=== PATIENT | male | born 1995 | race Caucasian/White ===

== ENCOUNTER → 2018-10-09 | Emergency (ER) | payer OTHER ==
[~2018-10-09] VITALS: Ht 182.9 cm; Wt 93.0 kg
[~2018-10-09] MED LIST: ALLEGRA-D 24 H1 EACH PO; LEVAQUIN750 MG PO; PROVENTIL HFA6.7 GM IH; SINGULAIR 10MG10 MG PO
== END | disposition home or self-care (01) ==
LOC: ER 07:30
DX: J06.9 Acute upper respiratory infection, unspecified (principal)

== ENCOUNTER 2018-10-24 10:22 | Emergency (ER) | payer OTHER ==
[~2018-10-24] VITALS: Ht 182.9 cm; Wt 90.7 kg
[2018-10-24] MEDS ORDERED: FLONASE16 GM NS (10:49)
== END 2018-10-24 13:13 | disposition home or self-care (01) ==
LOC: ER 10:22
DX: B34.9 Viral infection, unspecified (principal)

== ENCOUNTER 2022-04-01 18:17 | Emergency (ER) | payer OTHER ==
[~2022-04-01] VITALS: Ht 182.9 cm; Wt 98.9 kg
[~2022-04-01 18:17] MED LIST changes: +FLONASE16 GM NS
== END 2022-04-02 00:02 | disposition home or self-care (01) ==
LOC: ER 18:17 → EMR PED 18:43 → ER 04-02 00:02
DX: S00.93XA Contusion of unspecified part of head, initial encounter (principal); S40.012A Contusion of left shoulder, initial encounter; V49.9XXA Car occupant (driver) (passenger) injured in unspecified traffic accident, initial encounter; Y93.9 Activity, unspecified; Y92.413 State road as the place of occurrence of the external cause; Y99.9 Unspecified external cause status; M54.2 Cervicalgia; R55 Syncope and collapse; Z91.018 Allergy to other foods; Z91.013 Allergy to seafood